=== PATIENT | female | born 1990 | race Caucasian/White ===

== ENCOUNTER 2021-10-28 04:25 | Inpatient (IN) | payer SELFPAY ==
[2021-10-28 05:06] LABS: Hemoglobin 14.3 g/dL (12.0-16.0); Mean Corpuscular HGB CONC 33.5 g/dL (32.0-36.0); RBC Distribution Width 11.8 % (11.5-14.5); Red Blood Cell (RBC) Count 4.21 mill/uL (4.20-5.40)
[2021-10-28 05:16] LABS: ALT (SGPT) 22 U/L (8-55); AST (SGOT) 13 U/L (5-34); Albumin 4.3 g/dL (3.5-5.0); Alkaline Phosphatase 86 U/L (40-110); Anion Gap 13 mmol/L (10-20); BUN (Urea Nitrogen) 20 mg/dL (7.0-18.7); Bilirubin, Total 0.2 mg/dL (0.2-1.2); Calc. Creatinine Clearance 0 mL/min (70-130); Calcium 9.4 mg/dL (7.8-10.44); Carbon Dioxide 23 mmol/L (22-29); Chloride 109 mmol/L (98-107); Glucose 125 mg/dL (70-105); Potassium 4.2 mmol/L (3.5-5.1); Protein, Total 7.3 g/dL (6.0-8.3); Sodium 141 mmol/L (136-145)
[2021-10-28 05:37] LABS: CKMB 2.6 ng/mL (0-6.6)
[2021-10-28] MEDS ORDERED: Aspirin Chewable 81 MG TAB ONE (05:42)
[2021-10-28] MEDS ORDERED: Nitroglycerin 0.4 MG TAB 1 EACH ONE ×2 (05:42→06:21)
[2021-10-28 05:50] LABS: Band 4 % (5-11); Lymphocytes 14 % (21-51); MDiff Complete? YES; Mean Platelet Volume 7.9 fL (7.4-10.4); Monocytes 5 % (0-10); Neutrophil 77 % (42-75); Platelet Count 503 thou/uL (130-400); White Blood Cell (WBC) Count 24.5 thou/uL (4.8-10.8)
[2021-10-28 06:07] LABS: BHCG - Serum Negative (NEGATIVE); Pregs Control Background? CLEAR/WHITE (CLR/WHITE); Pregs Control Bar Appear? YES (CONTROL BAR)
[2021-10-28] MEDS ORDERED: Lorazepam 2 MG/ML VIAL ONE (06:20)
[2021-10-28] MEDS ORDERED: Enoxaparin Sodium 30 MG/0.3 ML SYRINGE ONE (06:50)
[2021-10-28] MEDS ORDERED: Enoxaparin Sodium 100 MG/ML SYRINGE ONE (06:50)
[2021-10-28] MEDS ORDERED: Acetaminophen 650 MG Suppository PR PRN (07:17)
[2021-10-28] MEDS ORDERED: Nitroglycerin 0.4 MG TAB (25 Tab Bottle) SL PRN (07:17)
[2021-10-28] MEDS ORDERED: Benzonatate 100 MG CAP PO PRN (07:17)
[2021-10-28] MEDS ORDERED: Labetalol HCl 100 MG/20 ML VIAL SLOW IVP PRN (07:17)
[2021-10-28] MEDS ORDERED: Acetaminophen 325 MG TAB PO PRN (07:17)
[2021-10-28] MEDS ORDERED: Artificial Tear Sol 15 ML BOT EA EYE PRN (07:17)
[2021-10-28] MEDS ORDERED: Calcium Carbonate 500 MG ChewTAB PO PRN (07:17)
[2021-10-28] MEDS ORDERED: hydrALAZINE 20 MG/ML VIAL SLOW IVP PRN (07:17)
[2021-10-28] MEDS ORDERED: Moisturizing Cream (Eucerin) 113 GM JAR TOP PRN (07:17)
[2021-10-28] MEDS ORDERED: Enoxaparin Sodium 40 MG/0.4 ML SYRINGE SC SCH (07:30)
[2021-10-28] MEDS ORDERED: Aspirin 325 MG TAB PO SCH (07:30)
[2021-10-28 08:02] LABS: Cardiac Risk 5.5 (Less than 4.5)
[2021-10-28 08:20] LABS: Troponin I 0.518 ng/mL (< 0.028)
[2021-10-28] MEDS: Lactated Ringer's 1,000 ML IV SCH ×2 (09:59→22:15)
[2021-10-28] MEDS: Folic Acid 1 MG TAB PO SCH (09:59)
[2021-10-28] MEDS: cefTRIAXone\\ROCEPHIN 1 GM in Sodium Chloride 0.9% 100 ML IVPB SCH (10:40)
[2021-10-28 10:45] VITALS: BMI 43.7
[2021-10-28 11:21] LABS: SARS-CoV-2 NAA Rapid Test Not Detected (NotDetected)
[2021-10-28 11:37] LABS: Troponin I 1.291 ng/mL (< 0.028)
[2021-10-28] MEDS ORDERED: Communication Order-Pharmacy FS SCH (13:30)
[2021-10-28 14:01] LABS: Amphetamine Not Detected (NotDetected); Barbiturates Screen Not Detected (NotDetected); Benzodiazepine Screen Not Detected (NotDetected); Cocaine Metabolite Screen Not Detected (NotDetected); Methadone Not Detected (NotDetected); Methamphetamine Not Detected (NotDetected); Opiate Screen Not Detected (NotDetected); Oxycodone Screen Not Detected (NotDetected); Phencyclidine (PCP) Not Detected (NotDetected); THC/Cannabinoid Screen Detected (NotDetected); Tricyclic Screen Not Detected (NotDetected)
[2021-10-28 14:09] LABS: Strep pneumo Urine Ag NEGATIVE (NEGATIVE)
[2021-10-28] MEDS: Nicotine 14 MG PATCH TD SCH (15:03)
[2021-10-28] MEDS: Nitroglycerin 2% Ointment 1 INCH/1 GM Packet TOP SCH ×2 (15:04→20:55)
[2021-10-28] MEDS: busPIRone HCl 10 MG TAB PO SCH ×2 (15:05→20:55)
[2021-10-28] MEDS: Rosuvastatin 20 MG TAB PO SCH (20:54)
[2021-10-28] MEDS: Enoxaparin Sodium 100 MG/ML SYRINGE SC SCH ×2 (20:55→20:59)
[2021-10-28] MEDS ORDERED: Enoxaparin Sodium 100 MG/ML SYRINGE SC SCH (21:00)
[2021-10-28] MEDS ORDERED: Atorvastatin Calcium 40 MG TAB PO SCH (21:00)
[2021-10-28] MEDS ORDERED: Electrolyte Replacement Protocol 1 EACH FS PRN (21:00)
[2021-10-29 04:49] LABS: Hemoglobin 12.2 g/dL (12.0-16.0); Mean Corpuscular HGB CONC 32.5 g/dL (32.0-36.0); Mean Corpuscular Hemoglobin 33.7 pg (27.0-31.0); Mean Platelet Volume 8.2 fL (7.4-10.4); Platelet Count 422 thou/uL (130-400); RBC Distribution Width 11.9 % (11.5-14.5); Red Blood Cell (RBC) Count 3.63 mill/uL (4.20-5.40)
[2021-10-29 05:02] LABS: Phosphorus 3.1 mg/dL (2.3-4.7)
[2021-10-29 05:07] LABS: ALT (SGPT) 19 U/L (8-55); AST (SGOT) 22 U/L (5-34); Albumin 3.5 g/dL (3.5-5.0); Alkaline Phosphatase 69 U/L (40-110); Anion Gap 11 mmol/L (10-20); BUN (Urea Nitrogen) 15 mg/dL (7.0-18.7); Bilirubin, Total 0.3 mg/dL (0.2-1.2); Calc. Creatinine Clearance 181 mL/min (70-130); Calcium 8.7 mg/dL (7.8-10.44); Carbon Dioxide 23 mmol/L (22-29); Chloride 107 mmol/L (98-107); Cholesterol 179 mg/dl (< 200 Desired); Globulin 2.3 g/dL (2.4-3.5); Glucose 95 mg/dL (70-105); HDL Cholesterol 36 mg/dL (>60 Neg Risk); LDL Cholesterol, Calculated 108 mg/dL; Magnesium 1.7 mg/dL (1.6-2.6); Potassium 3.9 mmol/L (3.5-5.1); Protein, Total 5.8 g/dL (6.0-8.3); Sodium 137 mmol/L (136-145); Triglycerides 176 mg/dL (Less than 150)
[2021-10-29 05:09] LABS: Band 1 % (5-11); Eosinophils 2 % (0-10); Lymphocytes 42 % (21-51); MDiff Complete? YES; Monocytes 4 % (0-10); Neutrophil 50 % (42-75); Reactive Lymphocytes 1 % (0-10)
[2021-10-29] MEDS: Citalopram 20 MG TAB PO SCH (05:33)
[2021-10-29] MEDS: Ezetimibe 10 MG TAB PO SCH (05:33)
[2021-10-29] MEDS: Aspirin Chewable 81 MG TAB PO SCH (05:33)
[2021-10-29] MEDS: busPIRone HCl 10 MG TAB PO SCH ×3 (05:34→20:50)
[2021-10-29] MEDS: Folic Acid 1 MG TAB PO SCH (05:35)
[2021-10-29] MEDS: Nitroglycerin 2% Ointment 1 INCH/1 GM Packet TOP SCH ×2 (05:38→13:46)
[2021-10-29] MEDS ORDERED: Magnesium 2 GM/50 ML(in water) 2 GM in Premix Bag 1 BAG IVPB SCH (06:00)
[2021-10-29] MEDS ORDERED: Sodium Chloride 0.9% 1,000 ML IV SCH (06:00)
[2021-10-29] MEDS ORDERED: Fentanyl 100 MCG/2 ML VIAL ONE (07:14)
[2021-10-29] MEDS ORDERED: Midazolam HCl 2 mg/2 ml Vial ONE (07:15)
[2021-10-29] MEDS ORDERED: Heparin 10,000 UNITS/ 10 ML VIAL ONE ×2 (07:38→08:20)
[2021-10-29] MEDS ORDERED: Nitroglycerin 100MG/250ML BOT 250 ML ONE (07:50)
[2021-10-29] MEDS ORDERED: Iopamidol 370 76% 100 ML VIAL ONE (08:10)
[2021-10-29] MEDS ORDERED: Iopamidol 370 76% 50 ML VIAL FS ONE (08:10)
[2021-10-29] MEDS ORDERED: TICAGRELOR 90 MG TABLET ONE (08:41)
[2021-10-29] MEDS: Lisinopril 20 MG TAB PO SCH (11:15)
[2021-10-29] MEDS: cefTRIAXone\\ROCEPHIN 1 GM in Sodium Chloride 0.9% 100 ML IVPB SCH (11:20)
[2021-10-29] MEDS: Lactated Ringer's 1,000 ML IV SCH ×2 (11:34→13:47)
[2021-10-29] MEDS: Nicotine 14 MG PATCH TD SCH (13:47)
[2021-10-29] MEDS: Rosuvastatin 20 MG TAB PO SCH (20:49)
[2021-10-29] MEDS: TICAGRELOR 90 MG TABLET PO SCH (20:50)
[2021-10-30 04:18] LABS: #Basophils 0.1 thou/uL (0.0-0.2); #Eosinphils 0.3 thou/uL (0.0-0.7); #Lymphocytes 5.3 thou/uL (1.20-3.40); #Monocytes 2.1 thou/uL (0.11-0.59); #Neutrophils 12.2 thou/uL (1.40-6.50); %Basophils 0.3 % (0.0-1.0); %Eosinophils 1.4 % (0.0-10.0); %Lymphocytes 26.7 % (21.0-51.0); %Monocytes 10.5 % (0.0-10.0); %Neutrophils 61.1 % (42.0-75.0); Hemoglobin 13.6 g/dL (12.0-16.0); Mean Corpuscular HGB CONC 33.8 g/dL (32.0-36.0); Mean Corpuscular Hemoglobin 34.1 pg (27.0-31.0); Mean Platelet Volume 7.8 fL (7.4-10.4); Platelet Count 419 thou/uL (130-400); RBC Distribution Width 11.7 % (11.5-14.5); Red Blood Cell (RBC) Count 3.98 mill/uL (4.20-5.40); White Blood Cell (WBC) Count 19.9 thou/uL (4.8-10.8)
[2021-10-30 05:18] LABS: ALT (SGPT) 18 U/L (8-55); AST (SGOT) 14 U/L (5-34); Albumin 3.9 g/dL (3.5-5.0); Alkaline Phosphatase 82 U/L (40-110); Anion Gap 12 mmol/L (10-20); BUN (Urea Nitrogen) 9 mg/dL (7.0-18.7); Bilirubin, Total 0.7 mg/dL (0.2-1.2); Calc. Creatinine Clearance 205 mL/min (70-130); Calcium 9.2 mg/dL (7.8-10.44); Carbon Dioxide 22 mmol/L (22-29); Chloride 105 mmol/L (98-107); Globulin 2.8 g/dL (2.4-3.5); Glucose 93 mg/dL (70-105); Potassium 3.6 mmol/L (3.5-5.1); Protein, Total 6.7 g/dL (6.0-8.3); Sodium 135 mmol/L (136-145)
[2021-10-30] MEDS: Lisinopril 20 MG TAB PO SCH (08:58)
[2021-10-30] MEDS: cefTRIAXone\\ROCEPHIN 1 GM in Sodium Chloride 0.9% 100 ML IVPB SCH (08:58)
[2021-10-30] MEDS: Citalopram 20 MG TAB PO SCH (08:59)
[2021-10-30] MEDS: TICAGRELOR 90 MG TABLET PO SCH (08:59)
[2021-10-30] MEDS ORDERED: Cyanocobalamin (Vitamin B-12) 1,000 MCG TAB PO SCH (09:00)
[2021-10-30] MEDS ORDERED: Multivit, Therapeutic 1 TAB PO SCH (09:00)
[2021-10-30] MEDS: Aspirin Chewable 81 MG TAB PO SCH (09:00)
[2021-10-30] MEDS: Folic Acid 1 MG TAB PO SCH (09:00)
[2021-10-30] MEDS ORDERED: Folic Acid 1 MG TAB PO SCH (09:00)
[2021-10-30] MEDS: busPIRone HCl 10 MG TAB PO SCH (09:00)
[2021-10-30] MEDS: Ezetimibe 10 MG TAB PO SCH (09:00)
[2021-10-30 12:53] VITALS: TEMP 98.6
[2021-10-30 13:48] VITALS: BP 120/57
== END 2021-10-30 12:35 | disposition home or self-care (01) | DRG 247 ==
LOC: SUATTDRO 04:25 → ERS 04:25 → 2NO 06:48 → OBSVTOIN 10-29 09:44
PROVIDERS: ADMIT Family Medicine; ATTEND Internal Medicine
PROC: 027034Z Dilation of Coronary Artery, One Artery with Drug-eluting Intraluminal Device, Percutaneous Approach (ICD-10-PCS; principal; 2021-10-29)
PROC: 4A023N7 Measurement of Cardiac Sampling and Pressure, Left Heart, Percutaneous Approach (ICD-10-PCS; 2021-10-29)
PROC: B2111ZZ Fluoroscopy of Multiple Coronary Arteries using Low Osmolar Contrast (ICD-10-PCS; 2021-10-29)
PROC: B2151ZZ Fluoroscopy of Left Heart using Low Osmolar Contrast (ICD-10-PCS; 2021-10-29)
DX: I21.4 Non-ST elevation (NSTEMI) myocardial infarction (principal); Z68.41 Body mass index [BMI] 40.0-44.9, adult; I10 Essential (primary) hypertension; E78.5 Hyperlipidemia, unspecified; F41.9 Anxiety disorder, unspecified; F17.210 Nicotine dependence, cigarettes, uncomplicated; D72.829 Elevated white blood cell count, unspecified; F12.10 Cannabis abuse, uncomplicated; D75.839 Thrombocytosis, unspecified; D75.89 Other specified diseases of blood and blood-forming organs; E78.00 Pure hypercholesterolemia, unspecified; E66.01 Morbid (severe) obesity due to excess calories; I25.10 Atherosclerotic heart disease of native coronary artery without angina pectoris; G43.909 Migraine, unspecified, not intractable, without status migrainosus; F32.A Depression, unspecified; Z20.822 Contact with and (suspected) exposure to COVID-19; Z72.89 Other problems related to lifestyle; Z90.81 Acquired absence of spleen; Z98.891 History of uterine scar from previous surgery; Z91.09 Other allergy status, other than to drugs and biological substances; Z79.899 Other long term (current) drug therapy; Z71.6 Tobacco abuse counseling; Z82.49 Family history of ischemic heart disease and other diseases of the circulatory system
CPT/HCPCS: 36415; 71045; 80053; 80061; 80306; 82553; 83735; 83880; 84100; 84145; 84484; 84703; 85025; 85347; 87040; 87086; 87449; 92928; 93005; 93306; 93458; 93798; 94760; 96372; 96374; 96375; 99152; 99153; C1874; C9600; G0378; J0696; J1644; J1650; J2060; J2250; J3010; J3490; J7050; J7120; Q9967

== ENCOUNTER 2023-02-28 12:34 | Inpatient (IN) | payer SELFPAY ==
[2023-02-28 12:53] LABS: #Basophils 0.1 thou/uL (0.0-0.2); #Eosinphils 0.3 thou/uL (0.0-0.7); #Monocytes 1.6 thou/uL (0.11-0.59); #Neutrophils 8.5 thou/uL (1.40-6.50); %Basophils 0.4 % (0.0-1.0); %Eosinophils 1.5 % (0.0-10.0); %Lymphocytes 37.7 % (21.0-51.0); %Monocytes 9.5 % (0.0-10.0); %Neutrophils 50.4 % (42.0-75.0); Hematocrit 41.4 % (36.0-47.0); Hemoglobin 14.4 g/dL (12.0-16.0); Mean Corpuscular HGB CONC 34.8 g/dL (32.0-36.0); Mean Platelet Volume 9.7 fL (7.4-10.4); Platelet Count 504 10x3/uL (130-400); RBC Distribution Width 12.8 % (11.5-14.5); Red Blood Cell (RBC) Count 4.36 mill/uL (4.20-5.40); White Blood Cell (WBC) Count 16.9 10x3/uL (4.8-10.8)
[2023-02-28 13:21] LABS: Troponin I Less than 0.010 ng/mL (< 0.028)
[2023-02-28 13:29] LABS: ALT (SGPT) 14 U/L (8-55); AST (SGOT) 9 U/L (5-34); Albumin 4.6 g/dL (3.5-5.0); Alkaline Phosphatase 72 U/L (40-110); Anion Gap 13 mmol/L (10-20); BUN (Urea Nitrogen) 10 mg/dL (7.0-18.7); Bilirubin, Total 0.2 mg/dL (0.2-1.2); Calc. Creatinine Clearance 0 mL/min (70-130); Calcium 9.6 mg/dL (7.8-10.44); Carbon Dioxide 23 mmol/L (22-29); Chloride 104 mmol/L (98-107); Estimated GFR 90; Glucose 134 mg/dL (70-105); Potassium 3.6 mmol/L (3.5-5.1); Protein, Total 7.6 g/dL (6.0-8.3); Sodium 136 mmol/L (136-145)
[2023-02-28 13:33] LABS: BHCG - Serum Negative (NEGATIVE); Pregs Control Background? CLEAR/WHITE (CLR/WHITE); Pregs Control Bar Appear? YES (CONTROL BAR)
[2023-02-28] MEDS ORDERED: Acetaminophen 500 MG TAB ONE (14:57)
[2023-02-28] MEDS ORDERED: Ondansetron PF 4 MG/2 ML Vial IVP PRN (15:56)
[2023-02-28] MEDS ORDERED: Nitroglycerin 0.4 MG TAB (25 Tab Bottle) SL PRN (15:56)
[2023-02-28] MEDS ORDERED: busPIRone HCl 5 MG TAB PO SCH (15:59)
[2023-02-28] MEDS ORDERED: Morphine 2 MG/ML VIAL SLOW IVP PRN (16:00)
[2023-02-28] MEDS ORDERED: Nicotine 14 MG PATCH TD PRN (16:01)
[2023-02-28 16:14] LABS: Troponin I Less than 0.010 ng/mL (< 0.028)
[2023-02-28 17:44] VITALS: BMI 42.7
[2023-02-28 18:37] LABS: Troponin I Less than 0.010 ng/mL (< 0.028)
[2023-02-28 19:30] LABS: Bilirubin Negative (Negative); Blood, Urine Negative (Negative); Clarity Clear (Clear); Glucose, Urine (Dipstick) Normal (Negative); Ketone, Urine Negative (Negative); Leukocyte Negative Leu/uL (Negative); Nitrite Negative (Negative); Protein, Urine (Dipstick) 10 mg/dL (Neg-Trace); Specific Gravity, Urine 1.025 (1.002-1.036); Urobilinogen 3 mg/dL (Less than 2); pH, Urine 6.5 (5.0-9.0)
[2023-02-28] MEDS: busPIRone HCl 5 MG TAB PO SCH (19:58)
[2023-02-28] MEDS: Rosuvastatin 20 MG TAB PO SCH (19:58)
[2023-03-01 05:58] LABS: Cardiac Risk 4.5 (Less than 4.5)
[2023-03-01] MEDS: Lisinopril 20 MG TAB PO SCH (09:20)
[2023-03-01] MEDS: Aspirin Chewable 81 MG TAB PO SCH (09:20)
[2023-03-01] MEDS: Clopidogrel Bisulfate 75 MG TAB PO SCH (09:20)
[2023-03-01] MEDS: Citalopram 20 MG TAB PO SCH (09:21)
[2023-03-01] MEDS: busPIRone HCl 5 MG TAB PO SCH ×3 (09:21→20:11)
[2023-03-01] MEDS: Rosuvastatin 20 MG TAB PO SCH (20:11)
[2023-03-01] MEDS: Famotidine 20 MG TAB PO SCH (20:11)
[2023-03-02 07:47] LABS: #Basophils 0.1 thou/uL (0.0-0.2); #Eosinphils 0.2 thou/uL (0.0-0.7); #Monocytes 1.6 thou/uL (0.11-0.59); #Neutrophils 9.6 thou/uL (1.40-6.50); %Basophils 0.4 % (0.0-1.0); %Eosinophils 1.3 % (0.0-10.0); %Lymphocytes 25.7 % (21.0-51.0); %Monocytes 10.2 % (0.0-10.0); Hematocrit 40.4 % (36.0-47.0); Hemoglobin 13.9 g/dL (12.0-16.0); Mean Corpuscular HGB CONC 34.4 g/dL (32.0-36.0); Mean Corpuscular Hemoglobin 32.6 pg (27.0-31.0); Mean Corpuscular Volume 94.6 fl (78.0-98.0); Mean Platelet Volume 9.9 fL (7.4-10.4); Platelet Count 521 10x3/uL (130-400); RBC Distribution Width 12.8 % (11.5-14.5); Red Blood Cell (RBC) Count 4.27 mill/uL (4.20-5.40); White Blood Cell (WBC) Count 15.4 10x3/uL (4.8-10.8)
[2023-03-02 08:14] LABS: ALT (SGPT) 15 U/L (8-55); AST (SGOT) 10 U/L (5-34); Albumin 4.4 g/dL (3.5-5.0); Alkaline Phosphatase 68 U/L (40-110); Anion Gap 13 mmol/L (10-20); BUN (Urea Nitrogen) 12 mg/dL (7.0-18.7); Bilirubin, Total 0.4 mg/dL (0.2-1.2); Calc. Creatinine Clearance 182 mL/min (70-130); Calcium 9.5 mg/dL (7.8-10.44); Carbon Dioxide 23 mmol/L (22-29); Chloride 102 mmol/L (98-107); Estimated GFR 107; Globulin 2.9 g/dL (2.4-3.5); Glucose 91 mg/dL (70-105); Protein, Total 7.3 g/dL (6.0-8.3); Sodium 134 mmol/L (136-145)
[2023-03-02] MEDS: Aspirin Chewable 81 MG TAB PO SCH (08:49)
[2023-03-02] MEDS: Clopidogrel Bisulfate 75 MG TAB PO SCH (08:49)
[2023-03-02] MEDS: Citalopram 20 MG TAB PO SCH (08:49)
[2023-03-02] MEDS: Lisinopril 20 MG TAB PO SCH (08:50)
[2023-03-02] MEDS: Famotidine 20 MG TAB PO SCH ×2 (08:50→19:54)
[2023-03-02] MEDS: busPIRone HCl 5 MG TAB PO SCH ×3 (08:50→19:54)
[2023-03-02] MEDS: Acetaminophen 325 MG TAB PO PRN (08:59)
[2023-03-02 12:26] LABS: Amphetamine Not Detected (NotDetected); Barbiturates Screen Not Detected (NotDetected); Benzodiazepine Screen Not Detected (NotDetected); Cocaine Metabolite Screen Not Detected (NotDetected); Methadone Not Detected (NotDetected); Methamphetamine Not Detected (NotDetected); Opiate Screen Not Detected (NotDetected); Oxycodone Screen Not Detected (NotDetected); Phencyclidine (PCP) Not Detected (NotDetected); THC/Cannabinoid Screen Not Detected (NotDetected); Tricyclic Screen Not Detected (NotDetected)
[2023-03-02] MEDS: Rosuvastatin 20 MG TAB PO SCH (19:53)
[2023-03-03] MEDS ORDERED: Communication Order-Pharmacy FS SCH (06:00)
[2023-03-03] MEDS ORDERED: Sodium Chloride 0.9% 1,000 ML IV SCH (06:00)
[2023-03-03] MEDS ORDERED: Lidocaine 1% (PF) 30 ML VIAL ONE (06:16)
[2023-03-03] MEDS ORDERED: Heparin 10,000 UNITS/ 10 ML VIAL ONE (06:16)
[2023-03-03] MEDS ORDERED: fentaNYL 50 mcg/mL 1 mL Vial ONE (06:47)
[2023-03-03] MEDS ORDERED: Midazolam HCl 2 mg/2 ml Vial ONE (06:47)
[2023-03-03] MEDS ORDERED: Sodium Chloride 0.9% 200 ML IV PRN (08:12)
[2023-03-03] MEDS ORDERED: Nitroglycerin 0.4 MG TAB (25 Tab Bottle) SL PRN (08:12)
[2023-03-03] MEDS ORDERED: Acetaminophen/Codeine 30-300mg Tablet PO PRN ×2 (08:12)
[2023-03-03] MEDS: Clopidogrel Bisulfate 75 MG TAB PO SCH (09:25)
[2023-03-03] MEDS: Famotidine 20 MG TAB PO SCH (09:25)
[2023-03-03] MEDS: busPIRone HCl 5 MG TAB PO SCH ×2 (09:26→14:34)
[2023-03-03] MEDS: Aspirin Chewable 81 MG TAB PO SCH (09:26)
[2023-03-03] MEDS: Lisinopril 20 MG TAB PO SCH (09:26)
[2023-03-03] MEDS: Citalopram 20 MG TAB PO SCH (09:26)
[2023-03-03] MEDS: Acetaminophen 325 MG TAB PO PRN (09:39)
[2023-03-03 15:56] VITALS: BP 145/65; TEMP 98.7
== END 2023-03-03 20:54 | disposition left against medical advice (07) | DRG 287 ==
LOC: ERS 12:34 → 2SW 15:15 → OBSVTOIN 03-01 12:02
PROVIDERS: ADMIT Family Medicine; ATTEND Internal Medicine
PROC: 4A023N7 Measurement of Cardiac Sampling and Pressure, Left Heart, Percutaneous Approach (ICD-10-PCS; principal; 2023-03-03)
PROC: B2111ZZ Fluoroscopy of Multiple Coronary Arteries using Low Osmolar Contrast (ICD-10-PCS; 2023-03-03)
PROC: B2151ZZ Fluoroscopy of Left Heart using Low Osmolar Contrast (ICD-10-PCS; 2023-03-03)
DX: I20.0 Unstable angina (principal); Z68.41 Body mass index [BMI] 40.0-44.9, adult; I50.22 Chronic systolic (congestive) heart failure; I11.0 Hypertensive heart disease with heart failure; E78.5 Hyperlipidemia, unspecified; F19.10 Other psychoactive substance abuse, uncomplicated; I25.2 Old myocardial infarction; D72.829 Elevated white blood cell count, unspecified; F17.210 Nicotine dependence, cigarettes, uncomplicated; G47.33 Obstructive sleep apnea (adult) (pediatric); F41.9 Anxiety disorder, unspecified; E66.01 Morbid (severe) obesity due to excess calories; Z88.8 Allergy status to other drugs, medicaments and biological substances; Z79.899 Other long term (current) drug therapy; Z90.49 Acquired absence of other specified parts of digestive tract; Z95.828 Presence of other vascular implants and grafts; Z71.6 Tobacco abuse counseling; Z98.891 History of uterine scar from previous surgery; Z71.3 Dietary counseling and surveillance
CPT/HCPCS: 36415; 71045; 80053; 80061; 80306; 81003; 84484; 84703; 85025; 85379; 88184; 93005; 93306; 93458; 93798; 99152; C1769; C1894; G0378; J1644; J2001; J2250; J3010; J7050